=== PATIENT | female | born 1960 | race Caucasian/White ===

== ENCOUNTER 2018-05-18 10:52 | Emergency (ER) | payer SELFPAY ==
[2018-05-18 11:18] VITALS: BP 141/80; PULSE 80; TEMP 98.4; BMI 26.7
--- NOTE | 2018-05-18 13:11 | PDOC ---
History of Present Illness - General Chief Complaint: Bleeding from Anus Stated Complaint: BACK PAIN Time Seen by Provider: 05/18/18 11:51 History Source: Patient - History of Present Illness Timing/Duration: reports: intermittent Past History - Past Medical History Allergies/Adverse Reactions: Allergies Allergy/AdvReac Type Severity Reaction Status Date / Time No Known Allergies Allergy Verified 05/18/18 11:10 Home Medications: Ambulatory Orders Naproxen [Naprosyn -] 500 mg PO BID PRN #14 tablet 11/19/13 COPD: No - Suicide/Smoking/Psychosocial Hx Smoking History: Never smoked Have you smoked in the past 12 months: No Hx Alcohol Use: No Review of Systems - Review of Systems Constitutional: No: Chills, Fever, Unexplained wgt Loss ABD/GI: No: Diarrhea, Nausea, Rectal Bleeding, Vomiting, Abdominal cramping *Physical Exam - Vital Signs Last Vital Signs Temp Pulse Resp BP Pulse Ox 98.4 F 80 18 141/80 99 05/18/18 11:10 05/18/18 11:10 05/18/18 11:10 05/18/18 11:10 05/18/18 11:10 - Physical Exam General Appearance: Yes: Appropriately Dressed. No: Apparent Distress HEENT: positive: Normal Voice Neck: positive: Supple Respiratory/Chest: negative: Respiratory Distress Gastrointestinal/Abdominal: positive: Soft. negative: Tender Rectal Exam: positive: normal exam, normal rectal tone, other (brown stool, no gross BRBb, no hemorrhoids). negative: hemorrhoids Integumentary: positive: Dry, Warm Neurologic: positive: Fully Oriented, Alert, Normal Mood/Affect Medical Decision Making - Medical Decision Making 05/18/18 13:07 57 yo female, denies any past medical history, presents with bright red blood per rectum. Patient states in the past 3 days has had 2 episodes of small amount of bright red blood with bowel movement, last time yesterday. No rectal pain, pressure, constipation, diarrhea, abdominal pain, nausea, vomiting. Denies any unexplained weight loss. Patient states she had similar episodes 2 months ago but did not seek medical evaluation then as sxs resolved on its own. Not on blood thinners. No colonoscopy in the past per patient See exam Transient BBRPR No scope in past Not on blood thinners No unexplained weight loss No associated sxs Stable w/ benign abd and normal rectal exam No further intervention needed in ED -will dc with strict instructions to f/u with her PMD this week to arrange colonoscopy to r/o cancer -reasons to return to ED d/w pt *DC/Admit/Observation/Transfer Diagnosis at time of Disposition: BRBPR (bright red blood per rectum) - Discharge Dispostion Disposition: HOME Condition at time of disposition: Good - Referrals - Patient Instructions Printed Discharge Instructions: DI for Rectal Bleeding Additional Instructions: La causa de jo sangrado rectal no est bessy en jess momento, eliza no se necesit ninguna otra intervencin en la ER. Por favor, vasile un seguimiento con jo PMD esta semana para programar maxime colonoscopia para descartar el cncer. Regrese a la vickey de emergencias para el empeoramiento de los sntomas rock se discuti hoy. - Post Discharge Activity
== END 2018-05-18 13:35 | disposition home or self-care (01) ==
LOC: JER 10:52
DX: K62.5 Hemorrhage of anus and rectum (principal)
CPT/HCPCS: 99282-25